=== PATIENT | female | born 1985 ===

== ENCOUNTER 2024-10-14 13:47 | Outpatient (CLI) | payer BC, SELFPAY | END 2024-10-14 13:48 | disposition home or self-care (01) | LOC: FRMREF 13:47 | PROVIDERS: Visit Provider Physician Assistant Medical | DX: E03.8 Other specified hypothyroidism (principal) | CPT/HCPCS: 84439; 84443 ==

== ENCOUNTER 2025-01-27 09:15 | Outpatient (CLI) | payer BC, SELFPAY | END 2025-01-27 09:16 | disposition home or self-care (01) | LOC: NFLDREF 02-01 21:40 | PROVIDERS: PCP Physician Assistant Medical; Referring Provider Physician Assistant Medical; Visit Provider Physician Assistant Medical | DX: D50.9 Iron deficiency anemia, unspecified (principal); E03.8 Other specified hypothyroidism | CPT/HCPCS: 82728; 84439; 84443 ==